=== PATIENT | female | born 1975 | race Caucasian/White ===

== ENCOUNTER 2023-08-08 04:40 | Day surgery (SDC) | payer BC, OTHER ==
[2023-08-01 11:11] VITALS: BMI 48.6
[2023-08-08 10:35] VITALS: TEMP 97.8
[2023-08-08 10:53] VITALS: BP 131/71; PULSE 75; RESP 15
== END 2023-08-08 11:33 | disposition home or self-care (01) ==
LOC: JASU-ENDO 04:40
PROVIDERS: ATTEND Internal Medicine Gastroenterology
PROC: 0DBN8ZX Excision of Sigmoid Colon, Via Natural or Artificial Opening Endoscopic, Diagnostic (ICD-10-PCS; 2023-08-08)
PROC: 0DBP8ZX Excision of Rectum, Via Natural or Artificial Opening Endoscopic, Diagnostic (ICD-10-PCS; principal; 2023-08-08 08:00)
DX: Z12.11 Encounter for screening for malignant neoplasm of colon (principal); D12.5 Benign neoplasm of sigmoid colon; D12.8 Benign neoplasm of rectum; K57.30 Diverticulosis of large intestine without perforation or abscess without bleeding
CPT/HCPCS: 81025; 88305-TC